=== PATIENT | male | born 1965 | race Hispanic/Latino ===

== ENCOUNTER 2017-08-19 19:41 | Emergency (ER) | payer SELFPAY ==
[2017-08-19] MEDS ORDERED: Dexamethasone 4 mg/ml Vial ONE (21:01)
[2017-08-19] MEDS ORDERED: Cyclobenzaprine 10 MG TAB ONE (21:01)
[2017-08-19] MEDS ORDERED: Ketorolac Tromethamine 30 MG/ML VIAL ONE (21:01)
== END 2017-08-19 21:35 | disposition home or self-care (01) ==
LOC: ERS 19:41
DX: S39.012A Strain of muscle, fascia and tendon of lower back, initial encounter (principal); S29.012A Strain of muscle and tendon of back wall of thorax, initial encounter; E11.9 Type 2 diabetes mellitus without complications; X50.1XXA Overexertion from prolonged static or awkward postures, initial encounter
CPT/HCPCS: 96372; J1100; J1885

== ENCOUNTER 2017-08-25 08:55 | Emergency (ER) | payer SELFPAY ==
--- NOTE | 2017-08-25 10:33 | RAD ---
CHEST TWO VIEWS: History: Emergency exam. Back pain. Comparison: None. FINDINGS: Lungs are slightly hypoinflated. Patchy in left lung base is likely atelectasis due to lung hypoinfla tion. No pneumothorax or large effusion. No acute osseous abnormality. IMPRESSION: Mild lung hypoinflation with left basilar opacity likely atelectasis. No acute intrathoracic abnormal ity. POS: [facility]
== END 2017-08-25 10:57 | disposition home or self-care (01) ==
LOC: ERS 08:55
DX: S29.012A Strain of muscle and tendon of back wall of thorax, initial encounter (principal); E11.9 Type 2 diabetes mellitus without complications; I10 Essential (primary) hypertension; Z79.1 Long term (current) use of non-steroidal anti-inflammatories (NSAID); X50.1XXA Overexertion from prolonged static or awkward postures, initial encounter
CPT/HCPCS: 71046

== ENCOUNTER 2019-12-17 17:03 | Emergency (ER) | payer SELFPAY | END 2019-12-17 19:43 | disposition left against medical advice (07) | LOC: ERS 17:03 | DX: Z53.21 Procedure and treatment not carried out due to patient leaving prior to being seen by health care provider (principal) ==

== ENCOUNTER 2021-08-01 08:43 | Emergency (ER) | payer SELFPAY | END 2021-08-01 09:20 | disposition home or self-care (01) | LOC: ERS 08:43 | DX: E11.42 Type 2 diabetes mellitus with diabetic polyneuropathy (principal); I10 Essential (primary) hypertension | CPT/HCPCS: 99283 ==

== ENCOUNTER 2023-12-19 15:48 | Emergency (ER) | payer SELFPAY ==
[2023-12-19 17:30] LABS: #Basophils 0.05 10x3/uL (0.0-0.2); %Basophils 0.3 % (0.0-1.0); %Eosinophils 0.6 % (0.0-10.0); %Lymphocytes 18.8 % (21.0-51.0); %Neutrophils 71.4 % (42.0-75.0); Hemoglobin 15.9 g/dL (14.0-18.0); Mean Corpuscular HGB CONC 36.1 g/dL (32.0-36.0); Mean Corpuscular Hemoglobin 32.3 pg (27.0-31.0); Mean Corpuscular Volume 89.4 fL (78.0-98.0); Mean Platelet Volume 10.2 fL (7.4-10.4); Platelet Count 310 10x3/uL (130-400); RBC Distribution Width 11.5 % (11.5-14.5); Red Blood Cell (RBC) Count 4.92 mill/uL (4.70-6.10)
[2023-12-19 17:45] LABS: PTT 26.6 sec (22.9-36.1); Prothrombin Time 12.9 sec (12.0-14.7)
[2023-12-19 17:52] LABS: Troponin I Less than 0.010 ng/mL (< 0.028)
[2023-12-19 17:59] LABS: ALT (SGPT) 22 U/L (8-55); AST (SGOT) 17 U/L (5-34); Albumin 3.3 g/dL (3.5-5.0); Alkaline Phosphatase 163 U/L (40-110); Anion Gap 16 mmol/L (10-20); BUN (Urea Nitrogen) 27 mg/dL (8.4-25.7); Bilirubin, Total 0.3 mg/dL (0.2-1.2); Calc. Creatinine Clearance 0 mL/min (70-130); Calcium 10.8 mg/dL (7.8-10.44); Carbon Dioxide 24 mmol/L (22-29); Chloride 93 mmol/L (98-107); Estimated GFR 66; Globulin 5.1 g/dL (2.4-3.5); Glucose 486 mg/dL (70-105); Magnesium 2.1 mg/dL (1.6-2.6); Potassium 4.6 mmol/L (3.5-5.1); Protein, Total 8.4 g/dL (6.0-8.3); Sodium 128 mmol/L (136-145)
[2023-12-19 18:02] LABS: Bacteria/HPF None Seen HPF (None Seen); Bilirubin Negative (Negative); Blood, Urine Negative (Negative); CAUTI Indications for Culture Pelvic or flank pain; Clarity Clear (Clear); Glucose, Urine (Dipstick) Greater than 1000 mg/dL (Negative); Ketone, Urine Negative (Negative); Leukocyte Negative Leu/uL (Negative); Nitrite Negative (Negative); Protein, Urine (Dipstick) Negative (Neg-Trace); RBC/HPF 0-3 HPF (0-3); Specific Gravity, Urine 1.027 (1.002-1.036); Squamous Epithelial None Seen HPF (0-3); Urobilinogen Normal mg/dL (Less than 2); WBC/HPF 0-3 HPF (0-3)
[2023-12-19 18:04] LABS: Urine Culture Reflex No No
[2023-12-19] MEDS ORDERED: Insulin Regular, Human 100 UNIT/ML 10 ML VIAL ONE (21:44)
== END 2023-12-19 22:35 | disposition home or self-care (01) ==
LOC: ERS 15:48
DX: E11.65 Type 2 diabetes mellitus with hyperglycemia (principal); I95.1 Orthostatic hypotension; I10 Essential (primary) hypertension
CPT/HCPCS: 36416; 71045; 80053; 81001; 82010; 83735; 84443; 84484; 85025; 85610; 85730; 93005; 96360; 96361; J1815